=== PATIENT | female | born 1975 | race Caucasian/White ===

== ENCOUNTER 2022-09-07 06:10 | Observation (INO) ==
--- NOTE | 2022-08-15 11:23 | PAT Medication Instructions ---
Medication Instructions Date of Service August 15, 2022 Home Medications Medication Instructions Recorded tramadol 50 mg tablet 50 mg PO Q6H PRN pain #20 tabs 06/14/21 diclofenac sodium 75 mg 75 mg PO BID PRN pain #60 tabs 08/23/21 tablet,delayed release amitriptyline 10 mg tablet 10 mg PO QPM amlodipine 10 mg tablet 10 mg PO QPM cyclobenzaprine 10 mg tablet 10 mg PO HS PRN muscle spasms escitalopram oxalate 10 mg tablet (Lexapro) 10 mg PO QAM levonorgestrel 0.15 mg-ethinyl estradiol 30 mcg tablets,3 mos pack(91) 1 tab PO QAM losartan 50 mg tablet 50 mg PO QAM omeprazole 20 mg capsule,delayed release 20 mg PO QAM tramadol 50 mg tablet 50 mg PO Q6H PRN pain diclofenac sodium 75 mg tablet,delayed release 75 mg PO BID PRN pain albuterol sulfate 90 mcg/actuation breath activated powder inhaler 2 inh inhalation QID PRN Wheezing fluticasone propionate 115 mcg-salmeterol 21 mcg/actuation HFA inhaler (Advair HFA) 2 puff inhalation BID multivitamin 1 tab PO QAM Continue as directed levonorgestrel 0.15 mg-ethinyl estradiol 30 mcg tablets,3 mos pack() 1 tab PO QAM ASK your surgeon for instructions diclofenac sodium 75 mg tablet,delayed release 75 mg PO BID PRN pain ASK your prescriber and surgeon amitriptyline 10 mg tablet 10 mg PO QPM DO NOT take the morning of surgery losartan 50 mg tablet 50 mg PO QAM multivitamin 1 tab PO QAM Take morning of surgery With a small sip of water, OTHERWISE NOTHING TO EAT OR DRINK AFTER MIDNIGHT: escitalopram oxalate 10 mg tablet (Lexapro) 10 mg PO QAM omeprazole 20 mg capsule,delayed release 20 mg PO QAM tramadol 50 mg tablet 50 mg PO Q6H PRN pain (if needed) albuterol sulfate 90 mcg/actuation breath activated powder inhaler 2 inh inhalation QID PRN Wheezing (use if needed; please bring rescue inhaler with you to hospital day of surgery if possible) fluticasone propionate 115 mcg-salmeterol 21 mcg/actuation HFA inhaler (Advair HFA) 2 puff inhalation BID Take evening before surgery amlodipine 10 mg tablet 10 mg PO QPM cyclobenzaprine 10 mg tablet 10 mg PO HS PRN muscle spasms (if needed) tramadol 50 mg tablet 50 mg PO Q6H PRN pain (if needed) albuterol sulfate 90 mcg/actuation breath activated powder inhaler 2 inh inhalation QID PRN Wheezing (if needed) fluticasone propionate 115 mcg-salmeterol 21 mcg/actuation HFA inhaler (Advair HFA) 2 puff inhalation BID Other Notes If you have any questions please call us at [phone] or [phone] or [phone] or [phone]
--- NOTE | 2022-08-22 15:23 | Anesthesiology Consultation ---
Date of Service August 22, 2022 Assessment & Plan (1) Encounter for pre-operative examination: Plan - will attempt to obtain records on lung mass from PCP including last PCP office note, PET scan, chest imaging. - check urine test STAT am DOS. Outpatient joint assessment: Patient is currently scheduled for inpatient pathway. If re-evaluated pending system levels during current pandemic/surgeon requests outpatient pathway, patient is not acceptable candidate for outpatient joint program from anesthesia standpoint. Chart Review Chart Review: Pending: Refer to Additional Notes / Consult section and Patient seen in Pre Admission Testing Teaching & Discussion Pre-Anesthesia Teaching/Discussion Notes: Instructed NPO after midnight before surgery, except medications with 15 cc of water. Medication instructions provided according to the PAT guidelines. History Surgery Operation Date: 09/07/22 07:00 Proposed Procedures p Right Total Knee Arthroplasty - Davy Christiansen DO Height/Weight Height: 5 ft 8 in Weight: 145.15 kg Allergies Allergy/AdvReac Type Severity Reaction Status Date / Time No Known Allergies Allergy Verified 08/14/22 14:36 Medications Home Medications Medication Instructions Recorded Confirmed Last Taken amitriptyline 10 mg tablet 10 mg PO QPM 09/01/19 08/14/22 Unknown amlodipine 10 mg tablet 10 mg PO QPM 09/01/19 08/14/22 Unknown cyclobenzaprine 10 mg tablet 10 mg PO HS PRN muscle spasms 09/01/19 08/14/22 Unknown escitalopram oxalate 10 mg tablet 10 mg PO QAM 09/01/19 08/14/22 Unknown (Lexapro) levonorgestrel 0.15 mg-ethinyl 1 tab PO QAM 09/01/19 08/14/22 Unknown estradiol 30 mcg tablets,3 mos pack(91) losartan 50 mg tablet 50 mg PO QAM 09/01/19 08/14/22 Unknown omeprazole 20 mg capsule,delayed 20 mg PO QAM 09/01/19 08/14/22 Unknown release tramadol 50 mg tablet 50 mg PO Q6H PRN pain #20 tabs 06/14/21 08/14/22 Unknown diclofenac sodium 75 mg 75 mg PO BID PRN pain #60 tabs 08/23/21 08/14/22 Unknown tablet,delayed release albuterol sulfate 90 mcg/actuation 2 inh inhalation QID PRN Wheezing 08/14/22 08/14/22 Unknown breath activated powder inhaler fluticasone propionate 115 2 puff inhalation BID 08/14/22 08/14/22 Unknown mcg-salmeterol 21 mcg/actuation HFA inhaler (Advair HFA) multivitamin 1 tab PO QAM 08/14/22 08/14/22 Unknown Past Medical History Medical History (Updated 08/23/22 @ 08:42 by Katherin Ha PA-C) Anxiety Dyspnea on exertion ongoing since COVID illness 06/2021, following with PCP, upcoming appt to establish care with pulm 11/08 GERD (gastroesophageal reflux disease) controlled, stable per pt History of COVID-19 06/2021; residual SOB (reason for inhaler, scheduled for pulmonary evaluation 10/2022) Hyperlipidemia Hypertension controlled, stable per pt IBS (irritable bowel syndrome) Lung mass Under surveillance by PCP, will be seeing pulmonary 10/2022 Thyroid nodule benign Patient denies h/o stroke, seizures, heart attack, heart failure, DM, blood clots or blood transfusions. Exercise / Class Metabolic Activity II 4-5 Yardwork/Stairs/Walk up hill (occ SOB with 1 FOS ongoing following COVID 06/2021 worsened after rib fracture 03/09 and improving; denies chest discomfort with 1 FOS) Past Surgical History Surgical History History of cholecystectomy History of colonoscopy History of esophagogastroduodenoscopy (EGD) History of tonsillectomy History of tooth extraction Past Anesthesia History No Hx of Anesthesia Complications and No Family Hx of Anesthesia Complications History of PONV No Hx of PONV and No Hx of Motion Sickness Social History Smoking Status: Never smoker Do You Dip or Chew Tobacco: No Hx Alcohol Use: Yes alcohol intake frequency: holidays/special occasions only Hx Substance Use: No substance use type: does not use Review of Systems Snoring, denies witnessed apneas. Patient denies chest pain, fever, chills, cough, wheezing, or palpitations. Physical Exam Vital Signs Vitals BP 129/83 P 79 TEMP 98.4 SP02 99% on RA RESP 18 Physical Short, thick neck Full cervical extension range of motion without pain TMD < 3 finger breadths Mallampati Score 2 Dentition: intact, denies chipped or loose teeth, caps/crowns implants or bridges Lungs: normal respiratory effort. Clear throughout to auscultation, no adventitious breath sounds Cardiac: regular rate and rhythm, no murmurs noted Carotid arteries: negative bruit bilat Lab Results Anesthesia Preop Results Results Anesthesia Widget: WBC 10.62 K/ul (4.8-10.8) 08/22/22 Hgb 13.8 g/dl (12.0-16.0) 08/22/22 Hct 42.4 % (34.1-44.9) 08/22/22 Plt 318 K/uL (130-400) 08/22/22 Na 140 mmol/L (136-145) 08/22/22 K 4.2 mmol/L (3.5-5.1) 08/22/22 Cl 106 mmol/L (98-107) 08/22/22 CO2 27 mmol/L (21-32) 08/22/22 BUN 10 mg/dl (6-23) 08/22/22 Creat 0.67 mg/dl (0.6-1.2) 08/22/22 Glucose Level 114 mg/dl (70-99(Fasting)) H 08/22/22 PT 10.3 Seconds (9.0-12.0) 08/22/22 PTT 27.9 Seconds (21.0-31.0) 08/22/22 INR 1.0 (0.9-1.1) 08/22/22 Blood Type A Positive 08/22/22 Antibody Screen NEGATIVE 08/22/22 Testing Electrocardiogram Date: 08/24/22 NSR, rate 77 bpm Chest X-Ray Date: 08/22/22 Cardiomediastinal and hilar silhouettes are within normal limits. No pneumothorax, pleural effusion, airspace consolidation or overt pulmonary edema. Degenerative changes of the shoulders and spine. Cholecystectomy. IMPRESSION: No acute process. COVID-19 Risk Screen Screening Information COVID-19 Screen Date: 08/22/22 Exposure 21 Days Family/Household +COVID Last 21 Days: No Exposure 10 Days Any COVID Exposure Last 10 Days: No Symptoms Last 10 Days Experienced COVID Sx Last 10 Days: No + COVID 0-90 Days COVID + in Last 0-90 Days: No
[~2022-09-07 06:10] MED LIST: ACETAMINOPHEN 500 MG TAB PO SCH; GABAPENTIN 900 MG DOSE PO SCH; LR 500ML BOLUS, THEN 15ML/HR IV SCH; LR 60ML/HR IV SCH; ORTHO JOINT MIX INFIL SCH; TRANEXAMIC ACID 1,000 MG **IV Intra-op IV SCH; TRANEXAMIC ACID 1,000 MG **IV Pre-op IV SCH; dexAMETHasone 4 MG TAB PO SCH
[2022-09-07] MEDS ORDERED: BUPIVACAINE 0.5 % 5 MG/1 ML PF 10ML VIAL ONE (06:23)
[2022-09-07] MEDS ORDERED: ROPIVACAINE 0.5% 5 MG/ML 30 ML VIAL ONE (06:23)
--- NOTE | 2022-09-07 06:29 | History & Physical Bridge Note ---
Date of Service September 07, 2022 History & Physical Bridge Note I have examined the patient, reviewed the History & Physical and in the interval since the performance of the History & Physical I have noted the following changes of clinical significance: no changes noted
[2022-09-07] MEDS ORDERED: MIDAZOLAM HCL 1 MG/ML 2ML VIAL ONE ×2 (06:56→07:59)
[2022-09-07] MEDS ORDERED: fentaNYL citrate 100 MCG/2 ML VIAL ONE (06:56)
[2022-09-07] MEDS ORDERED: PROPOFOL IV EMULSION 10 MG/ML 20 ML VIAL IV ONE ×4 (06:56→09:05)
[2022-09-07] MEDS ORDERED: LIDOCAINE 2% MPF LOCAL 5 ML VIAL INFIL ONE (06:56)
[2022-09-07] MEDS ORDERED: ONDANSETRON INJ 2 MG/ML 2 ML VIAL ONE (06:56)
[2022-09-07] MEDS ORDERED: fentaNYL citrate 100 MCG/2 ML VIAL IV PRN (07:02)
[2022-09-07] MEDS ORDERED: ATROPINE SULFATE 0.1 MG/ML 10ML SYR IV PRN (07:02)
[2022-09-07] MEDS ORDERED: ONDANSETRON INJ 2 MG/ML 2 ML VIAL IV PRN ×2 (07:02→10:34)
[2022-09-07] MEDS ORDERED: ePHEDrine sulfate 50 MG/ML AMP IV PRN (07:02)
[2022-09-07] MEDS ORDERED: ORTHO JOINT ANESTHETIC ONE (07:13)
[2022-09-07] MEDS ORDERED: KETAMINE 50 MG/5 ML SYRINGE ONE (08:02)
--- NOTE | 2022-09-07 09:10 | Operative Report ---
PG Post Operative Report Pre & Post Diagnosis Operation Date: 09/07/22 08:10 Pre-Op Diagnosis: Right Knee Degenerative Joint Disease Post-Op Diagnosis: Right Knee Degenerative Joint Disease I identified the patient and participated in the time-out.: Yes Procedure Operation Date: 09/07/22 08:10 Actual Procedures p Right Total Knee Arthroplasty, Cemented.(Right) - Davy Christiansen DO Surgeon Davy Christiansen DO Pool Finisher Andrew Veliz PA-C Estimated Blood Loss 30 Findings Consistent with Post-Op Diagnosis Specimens Right femoral and tibial bone Description of Procedure Implants used: I used a [employer] total knee arthroplasty system with a size 9 narrow femur, E tibia, 31 oval patella, and a size 12 medial congruent polyethylene bearing. All components were cemented in place with Biomet cement. Bisi arrived [facility] for the above procedure. She was seen in the preoperative holding area and the operative extremity was identified and signed. She was given a preoperative antibiotic, TXA, a spinal anesthetic and an adductor nerve block. She was taken back to the operating room and laid on the table in supine position. She was given basic sedation. The operative knee was then prepped and draped in sterile fashion. A timeout was done, and the patient and the operative extremity was properly identified. A midline incision was made directly over the patella. Dissection was taken down to the extensor mechanism. A midvastus arthrotomy was used. The medial retinaculum was released and the fat pad was mostly excised. The knee was flexed and the ACL, PCL, and meniscus were removed. A drill was sent down the center of the femoral canal followed by an intramedullary jesica. Off that jesica a distal femoral cutting block was placed. 9 mm was resected off the distal femur at 5 of valgus. A posterior referencing AP sizing guide was then placed on the distal femur. The femur measured to be a size 9. 2 drill holes were placed in 3 of external rotation. A 4-in-1 cutting block was then impacted into place. Anterior, posterior, and chamfer cuts were then made. The proximal tibia was then exposed. An external tibial alignment guide was placed. A tibial cut guide was then anchored in place and the proximal tibia was then resected. The posterior aspect of the knee was then opened up and any additional meniscus fragments and osteophytes were removed. The tibia measured to be a size E. The tibial plate was then placed in the appropriate rotation and the tibia was drilled and punched. Trial components were then placed. I used a size 12 medial congruent polyethylene insert. The knee was brought through a full range of motion and felt to be stable. The peg holes for the femoral component were then drilled. The patella was then everted and 9 mm was resected off the posterior aspect of the patella. The patella measured to be a size 31 oval. 3 peg holes were then drilled. A trial patella was placed. The knee was once again brought through a full range of motion and felt to be stable. Trial components were then removed. The surrounding soft tissues were injected with 100 cc of an orthopedic pain control cocktail. All components were then cemented into place with Biomet cement. The final polyethylene insert was then snapped into place. Once cement was dry the tourniquet was deflated. Hemostasis was obtained. A dilute betadyne lavage was then done for 3 minutes. The joint was then irrigated with normal saline solution. The subvastus arthrotomy was then closed with #1 Vicryl suture. The skin was closed with 2-0 Vicryl, 3-0V lock suture, and clayton. A soft compressive dressing was placed. She was then transferred to a hospital bed and taken to the postanesthesia care unit in stable condition. She tolerated the procedure well. Davy Bone PA-C, was present for the entire procedure. He was critical for patient positioning, prepping, draping, retraction exposure, wound closure and application of sterile dressing. I attest to the content of the Intraoperative Record and any orders documented therein. Any exceptions are noted below.
--- NOTE | 2022-09-07 10:02 | Anesthesiology Progress Note ---
Date of Service September 07, 2022 Anesthesia Post Procedure Vital Signs Vital Signs: Temp Pulse Pulse Resp BP Pulse Ox O2 Del Method 09/07/22 09:50 81 18 122/72 93 Room Air 09/07/22 09:40 80 24 119/73 99 Oxymask 09/07/22 09:32 97.5 F L 88 23 111/69 95 Oxymask 09/07/22 06:36 97.7 F 86 18 125/72 97 Room Air O2 Flow Rate 09/07/22 09:50 09/07/22 09:40 5 09/07/22 09:32 5 09/07/22 06:36 Transfer of Care Handoff Completed per policy Notes Mental Status: alert / awake / arousable and participated in evaluation Patient Amnestic to Procedure: Yes Nausea / Vomiting: adequately controlled Pain: adequately controlled Airway Patency, RR, SpO2: stable & adequate BP & HR: stable & adequate Hydration State: stable & adequate Neuraxial Anesthesia: was administered and sensory block is resolving Anesthetic Complications: no major complications apparent and Pt Satisfied with anesthetic care
--- NOTE | 2022-09-07 10:06 | XRay Report ---
RIGHT KNEE 2 VIEWS History: Right total knee arthroplasty. Degenerative arthritis. Postop. FINDINGS: The patient is status post a right total knee arthroplasty. The hardware is intact. No frac ture or dislocation. Skin clayton are in place. IMPRESSION: Right total knee arthroplasty. No evidence for hardware complication. ACT 112: Negative or not required by law. Electronically signed by: Jules Guillen M.D. 09/07/2022 10:04 AM
[2022-09-07] MEDS ORDERED: NALOXONE HCL 0.4 MG/1 ML VIAL/CARP IV PRN (10:34)
[2022-09-07] MEDS ORDERED: CYCLOBENZAPRINE HCL 10 MG TAB PO PRN (10:34)
[2022-09-07] MEDS ORDERED: bisacodyL 10 MG SUPP PR PRN (10:34)
[2022-09-07] MEDS ORDERED: METOCLOPRAMIDE HCL INJ 5 MG/ML 2 ML VIAL IV PRN (10:34)
[2022-09-07] MEDS ORDERED: HYDROmorphone INJ 0.5 MG/0.5 ML SYR IV PRN (10:34)
[2022-09-07] MEDS ORDERED: MAGNESIUM HYDROXIDE SUSP 30 ML UDC PO PRN (10:34)
[2022-09-07] MEDS ORDERED: ALBUTEROL HFA 8 GM INHALER INH PRN (10:37)
[2022-09-07] MEDS ORDERED: FLUTICASONE/VILANTEROL 200/25MCG 14 PUFFS/INHALER INH SCH (11:00)
[2022-09-07] MEDS: KETOROLAC 30 MG/ML VIAL IV SCH ×3 (11:34→22:08)
[2022-09-07] MEDS: MULTIVITAMIN TAB PO SCH (11:34)
[2022-09-07] MEDS: SODIUM CHLORIDE 0.9% 1000ML 1,000 ML IV SCH ×2 (11:37→22:06)
[2022-09-07] MEDS ORDERED: ALBUTEROL INH PRN (11:41)
[2022-09-07] MEDS: oxyCODONE HCL IR 5 MG TAB (IMMEDIATE RELEASE) PO PRN ×3 (12:35→20:29)
[2022-09-07] MEDS: ACETAMINOPHEN 500 MG TAB PO SCH ×2 (14:25→22:07)
[2022-09-07] MEDS: ceFAZolin 2000MG 2,000 MG/15 ML SYR IV SCH ×2 (16:38→23:01)
[2022-09-07] MEDS: ADVAIR INH SCH (20:32)
[2022-09-07] MEDS: DOCUSATE SODIUM 100 MG CAP PO SCH (20:32)
[2022-09-07] MEDS: ASPIRIN 81 MG ECTAB PO SCH (20:32)
[2022-09-07] MEDS ORDERED: amLODIPine BESYLATE 5 MG TAB PO SCH (21:00)
[2022-09-07] MEDS ORDERED: AMITRIPTYLINE HCL 10 MG TAB PO SCH (21:00)
[2022-09-07] MEDS ORDERED: SENNA 8.6 MG TAB PO SCH (21:00)
[2022-09-07] MEDS ORDERED: ADVAIR INH SCH (21:00)
[2022-09-08] MEDS: oxyCODONE HCL IR 5 MG TAB (IMMEDIATE RELEASE) PO PRN ×3 (01:05→10:00)
[2022-09-08] MEDS: KETOROLAC 30 MG/ML VIAL IV SCH ×3 (05:06→12:17)
[2022-09-08] MEDS: ACETAMINOPHEN 500 MG TAB PO SCH (05:07)
--- NOTE | 2022-09-08 06:42 | Orthopedic Progress Note ---
Date of Service September 08, 2022 Assessment & Plan (1) Status post right knee replacement: Overall she is doing very well. She is not having much pain in the right knee. She will be seen by physical therapy today for ambulation and range of motion exercises. The nursing staff can change her dressing after physical therapy. She is on aspirin for DVT prophylaxis. She can be discharged home later today. She will follow-up with orthopedics in 2 weeks. Belkis Mathews was seen and examined at bedside this morning. Overall she is doing very well. She is not having much pain of the right knee. She has been up and ambulating to the bathroom. She has no complaints.. Review of Systems All systems reviewed & are unremarkable except as noted in HPI & below. Physical Exam On physical examination of the right knee, the dressing is clean and dry. Her leg is out full extension. She has active dorsiflexion plantarflexion of her right ankle.. Results & Data Results & Data Laboratory Results . Diagnostic Findings Postoperative x-rays of the right knee show the prosthesis to be in anatomic alignment without any evidence of fracture, desiccation, or loosening. PG Care Time/CCT Total # of Minutes Spent Total Time Spent with Patient: Total time spent is greater than 50% in coordination of care (as documented) at patient's floor/unit and/or counseling patient: Coding Level of Care Code 87438 Post Operative Follow-Up Diagnoses Status post right knee replacement Z96.651
--- NOTE | 2022-09-08 06:43 | Discharge Summary ---
Date of Service September 08, 2022 Principal Diagnosis Same as "Discharge Diagnosis" noted below under Discharge Instructions. Discharge Exam On physical examination of the right knee, the dressing is clean and dry. Her leg is out full extension. She has active dorsiflexion plantarflexion of her right ankle.. Discharge Data Procedures Performed Operation Date: 09/07/22 08:10 Actual Procedures p Right Total Knee Arthroplasty, Cemented.(Right) - Davy Christiansen DO Ordered Studies 09/07/22 05:00 US - OR guided needle placemen Routine Hospital Course (1) Status post right knee replacement: On September 07, 2022 Bisi arrived at [facility] and underwent a right knee replacement without complication. She had a spinal anesthetic. Postoperatively she was started on aspirin for DVT prophylaxis and transferred to the general orthopedic floors. Her hospital course was uneventful. On postop day #1, her vital signs were stable and her pain was well controlled. She was able to participate well with physical therapy doing ambulation and range of motion exercises. She was then discharged home. She will follow-up with orthopedics in 2 weeks. PG Care Time/CCT Total # of Minutes Spent Total Time Spent with Patient: Total time spent is greater than 50% in coordination of care (as documented) at patient's floor/unit and/or counseling patient: Discharge Plan Discharge Items Patient Disposition: Home - Home Health Services Reason For Visit: Right Knee DJD Discharge Diagnosis: Right knee replacement Activity: Per Instructions section Non-emergency contact: Surgeon Call non-emergency contact if: your wound has increased redness and your wound has increased drainage Follow-up/Referrals: Gely Smyth DO [Primary Care Provider] - Diet: Regular Addtl Attending Provider Instructions: Activity and Therapy Recommendations: * If you are using [facility] then therapy will be provided at your home until they feel you have accomplished all of your goals. * If you are using [facility] then Physical Therapy will be provided until they feel you are ready to start Outpatient Physical Therapy. * If you are not using home therapy then Outpatient Physical Therapy should start about 3-5 days from your day of surgery. Therapy will last about 6-10 weeks * It is important not to put a pillow under your knee when you are relaxing or sleeping. It is just as important to make sure you are getting your knee perfectly straight as it is to regain your knee bend. * You were shown a series of exercises in the hospital. Do these exercises three times each day including the exercises you were shown in physical therapy. * Get up and walk several times each day. For the first four weeks, try not to stand or walk for more than one hour at a time. If you do stand or walk for more than one hour, you will not hurt anything, but your leg will likely swell. * As you feel comfortable, you may change from the walker or crutches to a cane and then to independent walking. Medications: * Narcotic You will likely be sent home from the hospital with a prescription for the narcotic pain medication that worked best throughout your stay. * Aspirin Most patients will be required to take Aspirin 81mg twice a day for 6 weeks after surgery. This is obtained [id number] and a prescription is not necessary. * Other medications may be prescribed for specific circumstances. If you have any questions, please call the office at . * Resume previous home medications unless otherwise instructed TEDs/Elastic Stockings: The white elastic stockings help limit swelling and prevent blood clots from forming in your legs.~ The more you wear them, the more they work. Wear them for six weeks. Dressing Care: The dressing can be changed after physical therapy on postop day #1. Daily dry dressing changes for a few days, especially if the incision is still draining some. If the incision is not draining then you may leave the clayton open to air. If there is a little bit of drainage or if the clayton are getting stuck on your clothing then cover the incision with a dry dressing. The clayton will be removed at your 2 week follow-up appointment. Showering: You may shower 5 days from the day of surgery as long as the incision is no longer draining. You may shower with the clayton exposed. Let soapy water run over the clayton and pat them dry. Do not scrub or soak the incision. Things To Watch For: * Drainage from the incision site that occurs more than one week after your surgery. * Increased redness at the incision site. * Fever above 102 degrees Fahrenheit. * Unusual chest pain or shortness of breath. * Call [facility] at with any of the above problems Follow-Up Visit: Follow-up with Dr. Christiansen's PA (Davy Bone) 2-3 weeks after your day of surgery. He will remove your clayton and answer any questions. If you have any additional questions or concerns, Dr Christiansen is usually in the office at the same time and will be available An appointment was probably scheduled when you signed-up for surgery in the office. If you have any questions call Office Instructions: More detailed instructions as well as Frequently Asked Questions were provided in a folder by our office when you signed-up for surgery. Please review these instructions when you get home. If you have any further questions or concerns, please feel free to call the office at [phone] Pending Studies at Discharge: No Stand-Alone Forms: My [facility], Smoking Cessation Medications and DC Order Prescriptions: New aspirin 81 mg Tablet,Delayed Release (Dr/Ec) 81 mg PO BID 42 Days Qty: 84 0RF oxycodone-acetaminophen 5-325 mg tablet 1 tab PO Q6H PRN (Reason: pain) Qty: 30 0RF Continued tramadol 50 mg tablet 50 mg PO Q6H PRN (Reason: pain) Qty: 20 0RF diclofenac sodium 75 mg tablet,delayed release (DR/EC) 75 mg PO BID PRN (Reason: pain) Qty: 60 0RF omeprazole 20 mg capsule,delayed release(DR/EC) 20 mg PO QAM amitriptyline 10 mg tablet 10 mg PO QPM amlodipine 10 mg tablet 10 mg PO QPM escitalopram oxalate [Lexapro] 10 mg tablet 10 mg PO QAM losartan 50 mg tablet 50 mg PO QAM levonorgestrel-ethinyl estrad 0.15 mg-30 mcg (91) tablets,dose pack,3 month 1 tab PO QAM cyclobenzaprine 10 mg tablet 10 mg PO HS PRN (Reason: muscle spasms) Advair HFA 115-21 mcg/actuation Hfa Aerosol Inhaler 2 puff INHALATION BID albuterol sulfate 90 mcg/actuation Aerosol Powdr Breath Activated 2 inh INHALATION QID PRN (Reason: Wheezing) multivitamin Tablet 1 tab PO QAM Admission Data Admit Date/Time: 09/07/22 09:32 Attending Provider: Davy Christiansen Admit Provider: Davy Christiansen Primary Care Provider: Gely Smyth Other Providers: [facility]
[2022-09-08] MEDS ORDERED: dexAMETHasone 4 MG TAB PO SCH (08:00)
[2022-09-08] MEDS: ASPIRIN 81 MG ECTAB PO SCH (08:37)
[2022-09-08] MEDS: DOCUSATE SODIUM 100 MG CAP PO SCH (08:37)
[2022-09-08] MEDS: MULTIVITAMIN TAB PO SCH (08:38)
[2022-09-08] MEDS: ADVAIR INH SCH (08:41)
[2022-09-08] MEDS ORDERED: ESCITALOPRAM OXALATE 10 MG TAB PO SCH (09:00)
[2022-09-08] MEDS ORDERED: PANTOprazole 40 MG TAB PO SCH (09:00)
[2022-09-08] MEDS ORDERED: MULTIVITAMIN TAB PO SCH (09:00)
[2022-09-08] MEDS ORDERED: LOSARTAN POTASSIUM 50 MG TAB PO SCH (09:00)
== END 2022-09-08 12:19 | disposition home health service (06) ==
LOC: 3E 06:10 → ASU 06:10
DX: E66.9 Obesity, unspecified; Z79.899 Other long term (current) drug therapy; M17.12 Unilateral primary osteoarthritis, left knee; Z68.43 Body mass index [BMI] 50.0-59.9, adult